=== PATIENT | male | born 1955 | race Caucasian/White ===

== ENCOUNTER → 2017-07-25 | Day surgery (SDC) | payer BC ==
[~2017-07-25] MED LIST: BUPIVACAINE HCL PF 0.25% 30 ML VIAL ONE; KETOROLAC TROMETHAMINE 30 MG/ML (IVP) VIAL IV PUSH ONE; LACTATED RINGER'S 1000 ML INJ 1,000 ML ONE; MIDAZOLAM HCL 2 MG/2 ML VIAL ONE; ONDANSETRON HCL 4 MG/2 ML VIAL IV PUSH ONE; PROPOFOL 200 MG/20 ML AMP IV ONE; ceFAZolin 2 GM PREMIX 50 ML ONE
--- NOTE | 2017-07-25 18:14 | MP ---
cc: MAYKEL SCHMID DPM DATE OF SURGERY 07/25/17 SURGEON Kacey Schmid DPM PREOPERATIVE DIAGNOSIS Right fourth, fifth digit hammertoe with painful interspace lesion. POSTOPERATIVE DIAGNOSIS Right fourth, fifth digit hammertoe with painful interspace lesion. PROCEDURES PERFORMED Right fourth, fifth digit PIPJ arthroplasty with excision of interspace lesion with webspace advancement syndactylization. station SPECIMEN None ESTIMATED BLOOD LOSS Less than 30 mL COMPLICATIONS None. ANESTHESIA General local 15 mL of 0.25% Marcaine plain TOURNIQUET TIME 30 minutes at a setting of 215 mmHg about the patient's mid calf. PLAN OF ACTIVITY PACU then DC home once stable per same-day surgery criteria JUSTIFICATION FOR PROCEDURE This is a pleasant 62-year-old male with recurrent painful lesion and bony prominence of the fourth, fifth digit. We devised a plan to move forward with surgical intervention after failing conservative treatment. No guarantee is given or implied regarding the outcome. PROCEDURE IN DETAIL Under mild sedation, the patient was brought into the operating room, placed on the operating table in the supine position. Following the induction of general anesthesia, local anesthesia was obtained about the right forefoot utilizing standard block fashion. The right foot was then scrubbed, prepped and draped in the usual aseptic fashion. The foot was elevated, exsanguinated and the previously placed mid calf tourniquet was inflated at 215 mmHg. An incision was made over the dorsal aspect of fourth digit PIPJ. Sharp and blunt dissection was carried down to the level of the tendon and a linear incision was made subperiosteal. There was a prominent lateral condyle which was excised utilizing power instrumentation. Next, an incision was made over the dorsal aspect of the fifth digit PIPJ. Sharp and blunt dissection was carried down to the tendon. A linear tendon incision took place and the subperiosteal dissection took place revealing a prominent medial PIPJ eminence. Utilizing power instrumentation, arthroplasty of the joint took place resecting the prominence medially. The wound was flushed with copious amounts of normal saline. At this time, the interdigital lesion at the base of the fourth, fifth digit was excised full-thickness and then the webspace advanced to prevent recurrence. The lesions were inspected. There was no signs of infection or pigmentation of skin. No need for pathological analysis. Nylon was used to close the interdigital lesion excision, syndactylization advancing the webspace of the fourth interspace. Tendon was repaired utilizing Vicryl. Skin was closed utilizing nylon over the fourth and fifth digit. Upon relieving the tourniquet, there was a prompt hyperemic response to all digits without any delayed capillary fill time. A bulky bandage was placed. The patient transferred from OR to PACU with all vital signs stable. The patient is weightbearing to tolerance. However, I am recommending no movement of toes, limit weightbearing. Follow up within 3-5 days. SKYLER Lopez/ /3:05 PM /6:02 PM
== END | disposition home or self-care (01) ==
LOC: ESDC 12:32
PROVIDERS: ATTEND Podiatrist Foot & Ankle Surgery
DX: M20.41 Other hammer toe(s) (acquired), right foot (principal); G57.61 Lesion of plantar nerve, right lower limb
CPT/HCPCS: 01470; 01480; 28080; 28280; 28285; 73620; 76000; J0690; J1885; J2250; J2405; J3010; J7120